=== PATIENT | female | born 1975 | race Two or more races ===

== ENCOUNTER → 2017-02-26 | Outpatient (CLI) | payer BC ==
--- NOTE | 2017-02-26 13:23 | RAD ---
Thyroid ultrasound, 02/26/2017: History: Hypothyroidism The right lobe of the gland measures 4.3 x 1.2 x 1.3 cm while the left lobe of the gland measures 3.6 x 1.3 x 0.8 cm. The thyroid echo pattern is homogeneous. No thyroid mass is evident. IMPRESSION: No significant abnormality is detected.
== END | disposition home or self-care (01) ==
LOC: US 12:39
PROVIDERS: ATTEND Nurse Practitioner Family
DX: E03.9 Hypothyroidism, unspecified (principal)
CPT/HCPCS: 76536

== ENCOUNTER → 2017-12-23 | Outpatient (CLI) | payer BC ==
--- NOTE | 2017-12-23 13:18 | RAD ---
Thoracic spine, 3 views, 12/23/2017: History: Back pain There is a minimal right convexity upper thoracic scoliosis. The vertebral heights are well-maintained. There are minimal marginal spurs. No fracture or dislocation is evident. The paraspinous soft tissues are unremarkable. IMPRESSION: 1. Minimal thoracic scoliosis. 2. No acute bony abnormality.
== END | disposition home or self-care (01) ==
LOC: PMG 12:55
PROVIDERS: ATTEND Nurse Practitioner Family
DX: M41.84 Other forms of scoliosis, thoracic region (principal)
CPT/HCPCS: 72072

== ENCOUNTER → 2018-06-24 | Outpatient (CLI) | payer BC | END | disposition home or self-care (01) | LOC: SURG 11:52 | PROVIDERS: ATTEND Anesthesiology Pain Medicine | DX: M47.814 Spondylosis without myelopathy or radiculopathy, thoracic region (principal); M47.22 Other spondylosis with radiculopathy, cervical region; M47.26 Other spondylosis with radiculopathy, lumbar region; E03.9 Hypothyroidism, unspecified | CPT/HCPCS: 99204 ==

== ENCOUNTER → 2018-08-26 | Outpatient (CLI) | payer BC ==
[~2018-08-26] MED LIST: 0.9 % SODIUM CHLORIDE 10 ML VIAL ONE; DEXAMETHASONE SOD PHOS 4 MG/ML VIAL ONE; IOHEXOL 300 MG/ML 50 ML VIAL. ONE; LIDOCAINE 1% PF 2 ML VIAL. ONE
== END | disposition home or self-care (01) ==
LOC: SURG 09:39
PROVIDERS: ATTEND Anesthesiology Pain Medicine
DX: M54.14 Radiculopathy, thoracic region (principal); J45.909 Unspecified asthma, uncomplicated; M19.90 Unspecified osteoarthritis, unspecified site; D64.9 Anemia, unspecified; Z79.899 Other long term (current) drug therapy
CPT/HCPCS: 62321; J1100; Q9967